=== PATIENT | male | born 1965 | race Two or more races ===

== ENCOUNTER → 2016-11-27 | Outpatient (REF) | payer BC ==
[~2016-11-27] MED LIST: /MELO7TA PO; META800T82 PO; ULTR50TA PO
[2016-11-27 19:11] LABS: ALBUMIN 3.9 GM/DL (3.2-5.2); ALKALINE PHOSPHATASE 72 U/L (45-117); ALT/SGPT 25 U/L (12-78); ANION GAP 8 MEQ/L (8-16); AST/SGOT 14 U/L (15-37); BILIRUBIN,TOTAL 0.4 MG/DL (0.2-1.0); BLOOD UREA NITROGEN 28 MG/DL (7-18); CALCIUM LEVEL 8.8 MG/DL (8.5-10.1); CARBON DIOXIDE LEVEL 28 MEQ/L (21-32); CHLORIDE LEVEL 104 MEQ/L (98-107); CHOLESTEROL LEVEL 213 MG/DL (<200); CREATININE FOR GFR 0.69 MG/DL (0.70-1.30); GLOMERULAR FILTRATION RATE > 60.0 (>56); GLUCOSE, FASTING 100 MG/DL (70-105); POTASSIUM SERUM 4.4 MEQ/L (3.5-5.1); SODIUM LEVEL 140 MEQ/L (136-145); TOTAL PROTEIN 6.9 GM/DL (6.4-8.2); TRIGLYCERIDES LEVEL 105 MG/DL (<150)
== END ==
LOC: M SFHCCLAY 10:08
PROVIDERS: ATTEND Family Medicine
DX: I10 Essential (primary) hypertension (principal); Z12.5 Encounter for screening for malignant neoplasm of prostate
CPT/HCPCS: 80053; 80061; 84443; G0103

== ENCOUNTER → 2017-01-11 | Outpatient (REF) ==
--- NOTE | 2017-01-11 12:35 | REP ---
Clinical: Pain and disability. Technique: AP, lateral, coned-down views of the lumbosacral spine. Comparison: 08/16/2013. Findings: Advanced multilevel degenerative changes include endplate sclerosis with disc space narrowing and marginal osteophytes which are most pronounced involving the L4-S1 levels. Hypertrophic facet changes are also appreciated at the L5-S1 at and L4-L5 levels. No acute fracture / compression injury or subluxation. Impression: Advanced multilevel degenerative disc osteophyte complexes. Findings have progressed since 2013. No acute fracture / compression injury identified. Signed by Deejay Mena MD 01/11/2017 12:27 P
--- NOTE | 2017-01-11 12:36 | REP ---
Clinical: Pain. Technique: Internal rotation, external rotation, and Y view. Findings: Moderate degenerative changes include cortical irregularity at the acromioclavicular joint as well as evidence for calcific tendinopathy with calcification adjacent to the humeral tuberosity. The subacromial space measures approximately 8 mm. No acute fracture dislocation. Impression: Moderate degenerative changes and evidence for calcific tendinopathy. Signed by Deejay Mena MD 01/11/2017 12:28 P
== END ==
LOC: M SMT 11:20
PROVIDERS: ATTEND Internal Medicine
DX: Z02.71 Encounter for disability determination (principal)

== ENCOUNTER → 2018-04-15 | Outpatient (CLI) | payer SELFPAY | LOC: M OUTALCOH 10:05 | DX: F11.20 Opioid dependence, uncomplicated (principal) ==

== ENCOUNTER 2018-04-23 14:56 | Outpatient (RCR) | payer SELFPAY | END 2018-05-15 | LOC: M OUTALCOH 05-07 08:00 | DX: F11.20 Opioid dependence, uncomplicated (principal); F12.10 Cannabis abuse, uncomplicated; F17.200 Nicotine dependence, unspecified, uncomplicated ==

== ENCOUNTER → 2022-03-29 | Outpatient (CLI) | payer OTHER ==
[~2022-03-29] MED LIST changes: -/MELO7TA PO; +MOBI4TAB PO
== END ==
LOC: M EKG 14:23
PROVIDERS: ATTEND Orthopaedic Surgery
DX: M20.41 Other hammer toe(s) (acquired), right foot (principal)

== ENCOUNTER → 2023-01-03 | Outpatient (REF) | LOC: M PLAIMG 11:40 | PROVIDERS: ATTEND Internal Medicine | DX: Z11.52 Encounter for screening for COVID-19 (principal) ==